=== PATIENT | male | born 1960 | race African-American/Black ===

== ENCOUNTER 2024-05-12 14:07 | Emergency (ER) | payer SELFPAY ==
[~2024-05-12] VITALS: Ht 195.6 cm; Wt 129.1 kg
[2024-05-12 14:19] VITALS: TEMP 98.4
[2024-05-12] MEDS ORDERED: HYDR25TA2 PO (14:21)
[2024-05-12] MEDS ORDERED: ATOR20TA PO (14:21)
[2024-05-12] MEDS ORDERED: CARV12 PO (14:21)
[2024-05-12 16:09] LABS: BASOPHILS % (AUTO) 0.6 % (0.0-2.0); EOSINOPHILS % (AUTO) 1.4 % (1.0-6.0); HEMATOCRIT 43.8 % (41-53); HEMOGLOBIN 14.4 g/dL (13.5-17.5); LYMPHOCYTES # (AUTO) 1.1 K/uL (1.0-4.8); LYMPHOCYTES % (AUTO) 20.2 % (22.0-44.0); MEAN CORPUSCULAR HEMOGLOBIN 31.9 pg (26.0-34.0); MEAN CORPUSCULAR VOLUME 97 fL (80-100); MONOCYTES # (AUTO) 0.8 K/uL (0.1-1.0); MONOCYTES % (AUTO) 13.9 % (2.0-9.0); NEUTROPHILS # (AUTO) 3.6 K/uL (1.8-7.7); NEUTROPHILS % (AUTO) 63.9 % (40.0-70.0); PLATELET COUNT (AUTO) 269 K/uL (150-450); RED BLOOD CELL COUNT(AUTO) 4.53 MIL/uL (4.50-5.90); RED CELL DISTRIBUTION WIDTH 13.1 % (11.5-14.5); WHITE BLOOD COUNT (AUTO) 5.6 K/uL (4.5-11.0)
[2024-05-12 16:22] LABS: PROTHROMBIN TIME 10.9 SEC (9.4-11.6)
[2024-05-12 16:23] LABS: CALCIUM, TOTAL 9.5 mg/dL (8.8-10.5); CREATININE 1.42 mg/dL (0.60-1.30); POTASSIUM 3.9 mmol/L (3.5-5.1)
[2024-05-12 16:26] LABS: TROPONIN I-HIGH SENSITIVITY 5 ng/L (<76)
[2024-05-12 16:47] LABS: ALBUMIN 3.5 g/dL (3.4-5.0); BILIRUBIN,TOTAL 1.6 mg/dL (0.1-1.0)
[2024-05-12] MEDS: ENOXAPARIN SODIUM 80 MG/0.8 ML PF SYRINGE SQ SCH (17:17)
[2024-05-12 18:20] VITALS: BP 121/65; PULSE 70; RESP 20
[2024-05-12] MEDS ORDERED: RIVA15TA PO (18:36)
== END 2024-05-12 19:02 | disposition home or self-care (01) ==
LOC: EMS 14:07
DX: I82.401 Acute embolism and thrombosis of unspecified deep veins of right lower extremity (principal); I10 Essential (primary) hypertension; Z79.899 Other long term (current) drug therapy
CPT/HCPCS: 99285; 93971; 71045; 80053; 82550; 83880; 84484; 85025; 85610; 85730; 36415; 93005; 96372; J1650